=== PATIENT | male | born 1950 | race Caucasian/White ===

== ENCOUNTER 2017-10-27 02:41 | Inpatient (IN) | payer OTHER, MEDICARE ==
[~2017-10-27] VITALS: Ht 172.7 cm; Wt 78.5 kg
[~2017-10-27 02:41] MED LIST: ASPIRIN325 M2 PO; CO Q-10200 MG PO; COZAAR50 M1 PO; FIBER625 MG PO; FISH OIL 1,0001 EAC5 PO; LIPITOR10 M1 PO; MULTIVITAMINS1 EAC9 PO; NUGENIX PO; PROSTATE HEALT1 EACH PO; ZETIA10 M1 PO
--- NOTE | 2017-10-27 09:50 | Admission Core Measures ---
Acute Coronary Syndrome (CM) ACS Core Measures Acute Coronary Syndrome Diagnosis No Congestive Heart Failure (NEW) CHF Core Measures Congestive Heart Failure Diagnosis No Cerebrovascular Accident (NEW) CVA Core Measures CVA/TIA Diagnosis No Venous Thromboembolism VTE Core [place] (View Protocol) VTE Risk Factors Surgery No Mechanical VTE Prophylaxis d/t N/A MechProphylax Ordered No VTE Pharm Prophylaxis d/t NA PharmProphylax ordered Problem List As ranked by this Provider includes Assessment & Plan 1. Unilateral primary osteoarthritis, right hip HOME MEDS Home Med List Aspirin (Aspirin*) 325 MG TABLET 1 TAB PO DAILY HEART/BLOOD (Reported) Ezetimibe (Zetia) 10 MG TABLET 1 TAB PO DAILY CHOLESTEROL (Reported) Losartan Potassium (Cozaar) 50 MG TABLET 1 TAB PO DAILY BP (Reported) Multiple Vitamin (Multivitamins) 1 EACH TABLET 1 TAB PO DAILY SUPPLEMENT ( Reported) [NUGENIX] (Unknown Strength) (Unknown Dose) PO QAM SUPPLEMENT (Reported) [place]-3S/Dha/Epa/Fish Oil (Fish Oil 1,000 MG Softgel) (Unknown Strength) CAPSULE (Unknown Dose) PO BID SUPPLEMENT (Reported) Polycarbophil (Fiber) (Unknown Strength) TABLET (Unknown Dose) PO QAM SUPPLEMENT (Reported) Saw/Vit E/Sod Katelyn/Lyc/Beta/Pyg (Prostate Health Caplet) (Unknown Strength) TABLET (Unknown Dose) PO DAILY SUPPLEMENT (Reported) Ubidecarenone (Co Q-10) (Unknown Strength) CAPSULE (Unknown Dose) PO DAILY SUPPLEMENT (Reported)
[2017-10-27] MEDS ORDERED: ASPIRIN EC325 M2 PO (09:53)
[2017-10-27] MEDS ORDERED: MS CONTIN15 M3 PO (09:53)
[2017-10-27] MEDS ORDERED: DILAUDID2 M1 PO (09:53)
[2017-10-27] MEDS ORDERED: MIRALAX17 G1 PO (09:53)
[2017-10-27] MEDS ORDERED: COLACE100 M1 PO (09:53)
[2017-10-27] MEDS ORDERED: PRILOSEC OTC20 M1 PO (09:53)
--- NOTE | 2017-10-27 09:58 | Patient Discharge Instructions ---
Discharge Instructions General Discharge Information You were seen/treated for: Right hip pain related to unilateral primary osteoarthritis You had these procedures: Right total hip replacement Watch for these problems: Increasing pain despite the use of pain medication Increasing redness, warmth or swelling Drainage of any type from incision Inability to bear weight on operative leg Persistent nausea and vomiting Fever greater than 101.5 degrees Do not soak the wound: Yes No bath, but you may shower: Yes Other wound care: Please keep wound clean and dry. No ointments or lotions of any type on or near incision at any time. No exceptions. Your dressing will be changed by your nurse on the second day after your surgery. Daily dry dressing changes are recommended each day thereafter. Do not soak your wound in a bath at any time until otherwise indicated by your surgeon. You may shower, please dry wound immediately after shower with a clean towel. Special Instructions: Aspirin: You are taking this medication to help prevent blood clot formation. Please take with food to protect your stomach lining. Please take as directed. Constipation: Pain medication can cause constipation. Dr. Campbell has recommended that you take Colace and miralax each day. You may discontinue this medication if you develop loose stool or diarrhea. If you wish to continue this medication, it is available over the counter. If you are unable to move your bowels after several days, if you are unable to pass gas and are developing bloating, nausea, or vomiting as a result, please contact your doctor. Diet Continue normal diet: Yes Recommended Diet: Regular Activity Full Activity/No Limits: No Activity Self Limited: Yes Pounds, do NOT lift more than: 10 Acute Coronary Syndrome Inclusion Criteria At DC or during hospital stay patient has or had the following: ACS DIAGNOSIS No Discharge Core Measures Meds if any: Prescribed or Continued at Discharge Meds if any: NOT Prescribed or Continued at Discharge Congestive Heart Failure Inclusion Criteria At DC or during hospital stay patient has or had the following: CHF DIAGNOSIS No Discharge Core Measures Meds if any: Prescribed or Continued at Discharge Meds if any: NOT Prescribed or Continued at Discharge Cerebrovascular accident Inclusion Criteria At DC or during hospital stay patient has or had the following: CVA/TIA Diagnosis No Discharge Core Measures Meds if any: Prescribed or Continued at Discharge Meds if any: NOT Prescribed or Continued at Discharge Venous thromboembolism Inclusion Criteria VTE Diagnosis No VTE Type NONE VTE Confirmed by (Test) NONE Discharge Core Measures - Per Current guidelines, there needs to be overlap - treatment for the first 5 days of Warfarin therapy. - If discharged on Warfarin prior to 5 days of - overlap therapy, the patient will need to be - assessed for post discharge needs including - *Post discharge parental anticoagulation - *Warfarin and/or parental anticoagulation education - *Follow up date to check INR post discharge At least 5 days overlap therapy as Inpatient No Meds if any: Prescribed or Continued at Discharge Note: Overlap Therapy is Warfarin and Anticoagulant Meds if any: NOT Prescribed or Continued at Discharge
--- NOTE | 2017-10-27 09:59 | Surgical Discharge Summary ---
Visit Information Visit Dates Admission Date: 10/27/17 Discharge Date: 10/27/17 History of Present Illness Chief Complaint: Right hip pain related to unilateral primary osteoarthritis Medical History Isolation History: Standard Surgical History Pertinent Surgical History: non-contributory Review of Systems: See H&P Hospital Course Course Attending Physician: Hema Campbell MD Primary Care Physician: Glo LARA,Vinod Palm Hospital Course: Patient was admitted to the hospital for an elective total joint replacement. The procedure was tolerated well and patient was transferred to a general surgical floor. Diet was advanced and tolerated, and the patient voided spontaneously. The patient was evaluated and treated by physical therapy. At the time of hospital discharge, the vital signs were stable, neurovascular status was intact, and pain was controlled with the use of oral pain medications. Allergies: Coded Allergies: No Known Allergies (10/24/17) Disposition Summary Disposition Principal Diagnosis: Right hip unilateral primary osteoarthritis Additional Diagnosis: None Discharge Disposition: home health services Discharge Instructions General Discharge Information Code Status: Full Code Patient's Diet: Regular, advance as tolerated Patient's Activity: WBAT Follow-Up Instructions/Appts: Follow up with Dr. Campbell in 6 weeks from date of surgery. Please call his office to arrange and/or confirm this appointment. Medications at Discharge Discharge Medications: Stop taking the following medications: Aspirin (Aspirin*) 325 MG TABLET ORAL DAILY Continue taking these medications: Losartan Potassium (Cozaar) 50 MG TABLET 1 Tablet ORAL DAILY Comments: NOT GIVEN IN [facility] Ezetimibe (Zetia) 10 MG TABLET 1 Tablet ORAL DAILY Comments: NOT GIVEN IN HOSPITAL Multiple Vitamin (Multivitamins) 1 EACH TABLET 1 Tablet ORAL DAILY [facility]: [facility] Ubidecarenone (Co Q-10) (Unknown Strength) CAPSULE Unknown Dose ORAL DAILY Comments: NOT GIVEN Polycarbophil (Fiber) (Unknown Strength) TABLET Unknown Dose ORAL Every Morning Comments: NOT GIVEN Saw/Vit E/Sod Katelyn/Lyc/Beta/Pyg (Prostate Health Caplet) (Unknown Strength) TABLET Unknown Dose ORAL DAILY Comments: NOT GIVEN [NUGENIX] (Unknown Strength) Unknown Dose ORAL Every Morning Comments: NOT GIVEN [place]-3S/Dha/Epa/Fish Oil (Fish Oil 1,000 MG Softgel) (Unknown Strength) CAPSULE Unknown Dose ORAL TWICE DAILY Comments: NOT GIVEN Start taking the following new medications: Aspirin (Ecotrin*) 81 MG TABLET.DR 1 Tablet ORAL TWICE DAILY Qty = 60 No Refills Comments: NOT GIVEN IN HOSPITAL Docusate Sodium (Colace) 100 MG CAPSULE 1 Capsule ORAL TWICE DAILY Qty = 14 No Refills Instructions: DISCONTINUE USE IF YOU DEVELOP LOOSE STOOL OR DIARRHEA Comments: NOT GIVEN IN HOSPITAL Polyethylene Glycol 3350 (Miralax) 17 GRAM POWD.PACK 1 Packet ORAL DAILY Qty = 7 No Refills Instructions: dissolve in water, DISCONTINUE USE IF YOU DEVELOP LOOSE STOOL OR DIARRHEA Comments: NOT GIVEN IN HOSPITAL Omeprazole Magnesium (Prilosec Otc) 20 MG TABLET.DR 1 Tablet ORAL DAILY Qty = 30 No Refills Comments: NOT GIVEN IN HOSPTAL Hydromorphone HCl (Dilaudid) 2 MG TABLET 1-2 Tablet ORAL EVERY 4-6 HOURS NEEDED as needed for PAIN Qty = 36 No Refills Comments: NOT GIVEN IN HOSPTIAL Morphine Sulfate (Ms Contin) 30 MG TABLET.ER 1 Tablet ORAL TWICE DAILY Qty = 4 No Refills Comments: NOT GIVEN IN HOSPTIAL Indomethacin (Indomethacin) 25 MG CAPSULE 1 Capsule ORAL THREE TIMES DAILY Qty = 30 No Refills Instructions: with food Comments: NOT GIVEN IN HOSPITAL
[2017-10-27] MEDS ORDERED: ASPIRIN EC81 M1 PO ×2 (10:53→15:26)
[2017-10-27] MEDS ORDERED: INDOMETHACIN25 M1 PO (10:53)
[2017-10-27] MEDS ORDERED: MS CONTIN30 M1 PO (10:53)
--- NOTE | 2017-10-27 11:19 | RADIOLOGY REPORT ---
EXAMINATION: XR HIP, RIGHT CLINICAL INFORMATION: Right total hip replacement. COMPARISON: There are no prior studies for comparison. TECHNIQUE: Frontal and crosstable lateral of the right hip. FINDINGS: There is slight cortical irregularity in the region of the lesser trochanter on the frontal view without definite visualization of a cortical defect, the remainder of the [place] bony structures are unremarkable. A bipolar right hip prosthesis is identified which is in near-anatomic anatomic alignment. Postoperative changes are noted within the soft tissues of the right hip. IMPRESSION: Findings associated with a right bipolar hip prosthesis placement.
[2017-10-27 12:15] VITALS: BP 132/71
--- NOTE | 2017-10-27 13:12 | PN- Orthopedic ---
Subjective Subjective: POST-OP CHECK PT SITTING IN CHAIR. NO COMPLAINTS. MINIMAL PAIN. AMBULATED-WAS CLEARED BY PT. DENIES PARESTHESIAS. NO CP/SOB Objective Vital Signs and I&Os Vital Signs Date Time Temp Pulse Resp B/P B/P Pulse O2 O2 Flow FiO2 Mean Ox Delivery Rate 10/27 1215 98.2 65 20 132/71 93 10/27 1202 100 Room Air Room Air Intake & Output 10/27 1600 10/27 0800 10/27 0000 10/26 1600 10/26 0800 10/26 0000 Intake Total Output Total Balance Patient 173 lb 173 lb Weight Weight Reported by Patient Measurement Method Physical Exam: GEN-NAD RESP-CLEAR CARDIO-RRR ABD-ND, SOFT, NT EXT-RIGHT HIP SOFT- CLEAN DRY DRESSING. DISTAL SENSORY AND MOTOR FUNCTION INTACT 2+PT PULSE BILATERALLY Assessment/Plan Assessment/Plan 66YO M SP R KRISTINA POD0. STABLE CLEARED BY PT TO GO HOME REG DIET DVT PPX- ASA,ALPS, TEDS AND EARLY AMBULATION PO PAIN MEDS PRN OK TO DC TO HOME TODAY Core Measures Venous Thromboembolism VTE Risk Factors Surgery No Mechanical VTE Prophylaxis d/t N/A MechProphylax Ordered No VTE Pharm Prophylaxis d/t NA PharmProphylax ordered
--- NOTE | 2017-10-27 15:01 | Operative Report ---
Operative/Inv Procedure Report Surgery Date: 10/27/17 Name of Procedure: Right total hip replacement Pre-Operative Diagnosis: Primary right hip DJD Post-Operative Diagnosis: Same Estimated Blood Loss: 350 Surgeon/Field Secretary: Shannan LARA,Hema Christina Anesthesia: general endotracheal tube, block Operative/Procedure Note Note: Description of Procedure: The patient was taken to the operating room and positively identified. After induction of spinal and general anesthesia and administration of appropriate pre -operative antibiotics, the patient was positioned supine on the operating room table and all bony prominences were well padded. After performing a surgical timeout, the right lower extremity was prepped and draped in the usual sterile fashion. A direct anterior approach was made to the right hip. The incision was carried sharply through superficial soft tissues to the level of the fascia. Meticulous hemostasis was maintained with Bovie electocautery. The fascia over the tensor fascia soledad muscle was opened sharply and the interval between the TFL and the sartorius was entered bluntly taking care to stay lateral to the lateral femoral cutaneous nerve. Retractors were placed around the femoral neck and the pericapsular fat was identified. The ascending branches of the lateral femoral circumflex vessels were identified and carefully coagulated. The pericapsular fat and anterior capsule were then resected. A napkin ring osteotomy was performed and the femoral head was removed without difficulty. It was immediately apparent that the patient's hip was extremely tight with regard to soft tissue tension. Extensive soft tissue releases were required throughout the procedure to gain exposure. Attention was then turned to the acetabulum. After appropriate placement of retractors, the acetabulum was exposed. Soft tissue was cleaned from the acetabular margin and notch. Overhanging osteophytes were removed and the teardrop was exposed. The acetabulum was then sequentially reamed to accept a 60 mm [place] Trident Tritanium hemispherical shell. This was impacted into place in the appropriate position and fitted with a 36 mm Trident X3 zero degree polyethylene insert. Attention was then turned to the femur. After performing the appropriate ligament releases, the proximal femur was exposed. It was then sequentially broached to accept a size 5 Pablo Accolade II stem. This was trialed for leg length and stability. The trial component was removed and the final component was impacted into place. The trunnion was carefully cleaned and fit with a 36 mm, +0 Biolox delta ceramic femoral head. The hip was reduced and put through a full range of motion and found to be stable. The articular space was then irrigated with sterile saline. The periarticular soft tissues were infilitrated with Marcaine. The fascial layer was closed with interrupted #1 vicryl suture and the skin was re-approximated with interrupted 2 -0 vicryl. The skin was closed with a running 3-0 V-Lock suture. Steri-strips and a sterile dressing were applied. The patient was awakened and taken to the recovery room in satisfactory condition.
== END 2017-10-27 15:00 | disposition home health service (06) | DRG 470 ==
LOC: SDA 02:41 → ENRESERV 10:55 → ENTRNSPT 11:15 → EDTRNSPTSTS 11:34 → EDTRNSPT 11:34 → 2NB 11:49 → CMPTRNSPT 11:53 → 2NB 15:00
PROC: 0SR904Z Replacement of Right Hip Joint with Ceramic on Polyethylene Synthetic Substitute, Open Approach (ICD-10-PCS; principal; 2017-10-27)
DX: M16.11 Unilateral primary osteoarthritis, right hip (principal); E11.65 Type 2 diabetes mellitus with hyperglycemia; I25.10 Atherosclerotic heart disease of native coronary artery without angina pectoris; Z79.82 Long term (current) use of aspirin; E78.00 Pure hypercholesterolemia, unspecified; Z95.1 Presence of aortocoronary bypass graft
CPT/HCPCS: 2NBSP; 73502-RT; 97116-GO; 97161-GP; C9399; J0131; J0690; J0735; J2405; J2550; J3490; J7042